=== PATIENT | female | born 1990 | race Caucasian/White ===

== ENCOUNTER 2018-01-29 12:42 | Emergency (ER) | payer MEDICAID ==
--- NOTE | 2018-01-29 14:47 | US ---
Indication: 28 weeks IUP with bleeding Comparison: None available Technique: Real-time ultrasound was performed through the pelvis. Findings: There is a single living fetus in cephalicpresentation. Amniotic fluid volume is within normal limits. Anterior placenta. The placenta is not previa. There are no adnexal masses or cysts evident. Cervix length measures approximately Measurements and calculations: Fetus has a composite sonographic age of 20 weeks 1 day. This calculation is based on the biparietal diameter, head circumference, abdominal circumference, and femur length. Estimated heart rate 142.5 beats per min. Estimated weight 1134 g. Impression: Single living fetus with a composite sonographic age of 20 weeks 1 day. Estimated heart rate 142.5 beats per min. The study was performed for the emergent evaluation of bleeding, and the whole anatomic survey of the fetus was not performed. This should be performed on an outpatient elective basis as clinically warranted.
[2018-01-29 14:56] LABS: BASO # 0.1 K/uL (0.0-0.2); BASO % 0.7 % (0.0-2.0); EOS # 0.2 K/uL (0.0-0.7); EOS % 1.6 % (0.0-4.0); HEMOGLOBIN 10.7 g/dL (11.0-16.0); LYMPH # 1.5 K/uL (1.0-4.3); LYMPH % 14.4 % (20.0-40.0); MEAN CELL VOLUME 84.9 fL (81.0-99.0); MEAN CORPUSCULAR HEMOGLOBIN 29.6 pg (27.0-31.0); MEAN CORPUSCULAR HGB CONC 34.8 g/dL (33.0-37.0); MEAN PLATELET VOLUME 6.8 fL (7.2-11.7); MONO # 0.9 K/uL (0.0-0.8); MONO % 8.1 % (0.0-10.0); NEUT % 75.2 % (50.0-75.0); RBC 3.6 Mil/uL (3.80-5.20); RED CELL DISTRIBUTION WIDTH 12.5 % (11.5-14.5); WHITE BLOOD COUNT 10.6 K/uL (4.8-10.8)
[2018-01-29 15:03] LABS: SQUAMOUS EPITHIAL 10 /hpf (0-5); URINE BACTERIA OCC (<OCC); URINE BILIRUBIN NEGATIVE (NEGATIVE); URINE BLOOD 3+ (NEGATIVE); URINE CLARITY Hazy (Clear); URINE COLOR Yellow (YELLOW); URINE GLUCOSE (UA) NORMAL (Normal); URINE LEUKOCYTE ESTERASE 1+ Leu/uL (Negative); URINE PROTEIN 1+ mg/dL (NEGATIVE)
[2018-01-29] MEDS ORDERED: cefTRIAXone 2 GM in Sodium Chloride 0.9% 100 ML IVPB ONE (15:25)
--- NOTE | 2018-01-29 16:17 | OBHP ---
Datetime: 01/29/2018 16:00 IP Adm Impression: , intrauterine ; No Active Labor IP Chief Complaint Other: Vaginal Bleeding IP Admit Plan: Observation/Evaluation Admit Comment, IP Provider: 27 yo female with an IUP at 28.4 weeks Presented with c/o of vaginal bleeding last PM and today on/off. Also c/o of thick vaginal D/C and Increased frequency of urination with urgency. Admits to drinking little to no water Denies any pelvic pain, or contractions. Admits to adequate FM Pt furthe states that she had a Placenta Previa with her first but delivered Vaginally PMXx and PSHx negative Social Hx Negative x 3 Allergies Bactrim A/P SSE no blood in vagina but thick, copious amount of vaginal discharge, non-malodorous Suspected GC/Ch and test in urine ordered Vaginal culture also done for Trich and B Received IV Hydration and Rocephin 2 grams IVPB Probable Dehydration and UTI Pelvic US ordered and no Placenta Previa Urine with large Hematuria. No CVA tenderness No contractions and Tracing reassuring for GA D/C Home with instructions to increase po water intake Rx's for Macrobid and Diflucan Will follow up at her Clinic in 7-10 days or sooner if needed Pelvic Type - PN: Adequate Extremities - PN: Normal Abdomen - PN: Normal Back - PN: Normal Breast - PN: Not Done Lungs - PN: Normal Heart - PN: Normal Thyroid - PN: Normal Neurologic - PN: Normal HEENT - PN: Normal General - PN: Normal Presentation-Admit: Vertex FHR - Baseline A Provider: 150 Membranes, Provider: Intact Contraction Comments Provider: None Gestation - Est Wks by US: 28.4 EGA AdmitDate IP: 28.4 Vital Signs Provider: Reviewed; Within Normal Limits IP Chief Complaint: Signs/symptoms UTI; Maternal discomfort; evaluation; Other NICHD Variability Prov Fetus A: Moderate 6-25bpm NICHD Accel Fetus A IP Provider: 10X10 NICHD Decel Fetus A IP Provider: None Dilatation, Provider: 0 Effacement, Provider: 0 Station, Provider: High Genitourinary Exam: Normal DTRs - PN: Normal
--- NOTE | 2018-01-29 16:19 | OBDCSUM ---
Datetime: 01/29/2018 15:41 Discharged to, Provider: Home Follow up at, Provider: clinic Disch Instr Activity: Normal activity Disch Instr Diet: Regular Discharge Instructions, Provider: Routine instructions given Discharge Diagnosis, Provider: Antepartum Bleeding Discharge Time: 01/29/2018 15:42 Follow up in weeks, Provider: 7-10 days Disch Referrals: None Contraception discussed, Prov: No Disch Activity Restrictions: No exercising; No lifting; No sexual activity; Nothing in vagina - Inte rcourse, tampons, douche Discharge Comment, Provider: 27 yo female with an IUP at 28.4 weeks Presented with c/o of vaginal bleeding last PM and today on/off. Also c/o of thick vaginal D/C and Increased frequency of urination with urgency. Admits to drinking little to no water Denies any pelvic pain, or contractions. Admits to adequate FM Pt furthe states that she had a Placenta Previa with her first but delivered Vaginally PMXx and PSHx negative Social Hx Negative x 3 Allergies Bactrim A/P SSE no blood in vagina but thick, copious amount of vaginal discharge, non-malodorous Suspected GC/Ch and test in urine ordered Vaginal culture also done for Trich and B Received IV Hydration and Rocephin 2 grams IVPB Probable Dehydration and UTI Pelvic US ordered and no Placenta Previa Urine with large Hematuria. No CVA tenderness No contractions and Tracing reassuring for GA D/C Home with instructions to increase po water intake Rx's for Macrobid and Diflucan Will follow up at her Clinic in 7-10 days or sooner if needed Discharge Diagnosis Prov Other: UTI with Hematuria
[2018-01-29 19:47] VITALS: BP 108/54; PULSE 81
== END 2018-01-29 15:46 | disposition home or self-care (01) ==
LOC: C.EROB 12:42
DX: O23.43 Unspecified infection of urinary tract in pregnancy, third trimester (principal); Z3A.28 28 weeks gestation of pregnancy
CPT/HCPCS: 76815; 81001; 85025; 86850; 86900; 87070; 87480; 87491; 87510; 87591; 87660; 96374; 99283; J0696

== ENCOUNTER 2018-02-28 13:18 | Emergency (ER) | payer BC, MEDICAID ==
[2018-02-28 14:54] LABS: SQUAMOUS EPITHIAL 34 /hpf (0-5); URINE BACTERIA FEW (<OCC); URINE BILIRUBIN NEGATIVE (NEGATIVE); URINE BLOOD 3+ (NEGATIVE); URINE CLARITY Hazy (Clear); URINE COLOR Yellow (YELLOW); URINE GLUCOSE (UA) NORMAL (Normal); URINE LEUKOCYTE ESTERASE 3+ Leu/uL (Negative); URINE PROTEIN 1+ mg/dL (NEGATIVE); URINE UROBILINOGEN NORMAL mg/dL (0.2-1.0); WBC CLUMPS MOD /hpf
[2018-02-28] MEDS ORDERED: cefTRIAXone 1 gm in Water For Injection 2.1 ML IM ONE (16:00)
--- NOTE | 2018-02-28 17:13 | OBHP ---
Datetime: 02/28/2018 15:42 IP Adm Impression: , intrauterine ; No Active Labor IP Admit Plan: Observation/Evaluation Admit Comment, IP Provider: cc: "Vaginal discharge and bleeding last night and this morning" Patient is a 27 y/o who is currently 32 weeks and 6 days gestational age who presented tod ay for vaginal discharge and bleeding. She had associated symptoms of diarrhea (x4 episodes) and mild -mod low back and abdominal pain. She described her vaginal discharge as "dark brown with a tinge of pink". She said that she had vaginal discharge last night at 8pm and this morning at 8 am as well. De nies dysuria, frequency, urgency, dizziness, cp, sob, n/v. Her LMP is 07/14/17. Based on patient's LMP , her UDAY is on 04/19/18. Patient endorses movement. Denies contractions. No leakage of fluid. Denies sexual activity. She takes vitamins and iron supplements. She does not drink enough w ater. OBHx: . Previous term delivery (38 weeks gestational age) was to baby boy 5 lb 3 oz. P revious miscarriage. GynHx: menarche at 11 y/o. Periods occur every 28-30 days and last 2-3 days in duration. Previousl y was positive for Chlamydia (2010). Denies other STI. Denies fibroids and cysts. Last pap smear was in August and normal. PMHx: Asthma PSHx: none Meds: vitamins, iron supplement Allergies: Allergra, Bactrim SocialHx: denies EtOH, smoking, and recreational drug use. Works at a dialysis center. Monogamous to . Not sexually active at this time. FamHx: mom (60 y/o) with HTN. Dad (60 y/o) with HTN and HLD. Assessment: Patient is a 27 y/o who is currently 32 weeks and 6 days gestational age + Greenish vaginal discharge, bloody tinged No active vaginal bleeding noted Muscular related back pain Plan: 1. Urinalysis: showed +blood, +Leukocyte esterase, + wbc, + bacteria 2. Culture of Green vaginal discharge sent 3. Urine culture ordered 4. Ceftriaxone 2g x1 IM injection 5. Diflucan 150 mg PO tablet given 6. Motrin 600 mg PO tablet 7. NST done and Reactive. No Uterine contractions 7. Encourage increased PO intake. Andrea Stephenson, PGY1 DEJA H_P note for Dr. Woody Pelvic Type - PN: Adequate Extremities - PN: Normal Abdomen - PN: Normal Back - PN: Normal Breast - PN: Not Done Lungs - PN: Normal Heart - PN: Normal Thyroid - PN: Not Done Neurologic - PN: Normal HEENT - PN: Normal General - PN: Normal FHR - Baseline A Provider: 140 Membranes, Provider: Intact Contraction Comments Provider: None Comments, ACOG Physical Exam: Gen: NAD. AAOx3. Resting comfortably in bed. Heart: RRR, normal s1/s2. Lungs: CTA bilaterally. No w/r/r Back: Low back pain likely 2/2 . Abdomen: Gravid abdomen. Fundal height is appropriate for gestational age. +BS. NT/ND. : speculum exam showed green tinged discharge. Lower Extremity: no pitting edema. No swelling of the legs. No calf tenderness. Negative Glen sig n. Gestation - Est Wks by US: 32.6 EGA AdmitDate IP: 32.6 Vital Signs Provider: Reviewed; Within Normal Limits IP Chief Complaint: Vaginal bleeding; Signs/symptoms UTI NICHD Variability Prov Fetus A: Moderate 6-25bpm NICHD Accel Fetus A IP Provider: 10X10 FHR Category Provider Fetus A: Category I NICHD Decel Fetus A IP Provider: None Dilatation, Provider: 0 Effacement, Provider: 0 Station, Provider: floating Genitourinary Exam: Abnormal DTRs - PN: Normal
--- NOTE | 2018-02-28 17:36 | OBDCSUM ---
Datetime: 02/28/2018 16:00 Discharged to, Provider: Home Follow up at, Provider: clinic Disch Instr Activity: Normal activity Disch Instr Diet: Regular Discharge Instructions, Provider: Routine instructions given Discharge Diagnosis, Provider: Antepartum Bleeding Discharge Time: 02/28/2018 16:00 Follow up in weeks, Provider: schedule appointment or prn Disch Referrals: None Contraception discussed, Prov: Yes Disch Activity Restrictions: No exercising; No lifting; Minimize stair-climbing; No sexual activity; Nothing in vagina - Hermann, tampons, douche Discharge Comment, Provider: Patient is a 27 y/o who is currently 32 weeks and 6 days gestat ional age who presented today for vaginal discharge and bleeding. She had associated symptoms of diar etienne (x4 episodes) and mild-mod low back and abdominal pain. She described her vaginal discharge as " dark brown with a tinge of pink". She said that she had vaginal discharge last night at 8pm and this morning at 8 am as well. Denies dysuria, frequency, urgency, dizziness, cp, sob, n/v. Her LMP is 07/14. Based on patient's LMP, her UDAY is on 04/19/18. Patient endorses movement. Denies contract ions. No leakage of fluid. Denies sexual activity. She takes vitamins and iron supplements. She does not drink enough water. Pt seen one month ago with the same complaints. OBHx: . Previous term delivery (38 weeks gestational age) was to baby boy 5 lb 3 oz. P revious miscarriage. GynHx: menarche at 11 y/o. Periods occur every 28-30 days and last 2-3 days in duration. Previousl y was positive for Chlamydia (2010). Denies other STI. Denies fibroids and cysts. Last pap smear was in August and normal. PMHx: Asthma PSHx: none Meds: vitamins, iron supplement Allergies: Allergra, Bactrim SocialHx: denies EtOH, smoking, and recreational drug use. Works at a dialysis center. Monogamous to . Not sexually active at this time. FamHx: mom (60 y/o) with HTN. Dad (60 y/o) with HTN and HLD. Assessment: Patient is a 27 y/o who is currently 32 weeks and 6 days gestational age + Greenish vaginal discharge, bloody tinged No active vaginal bleeding noted Muscular related back pain Drinks little to no water Plan: 1. Urinalysis: showed +blood, +Leukocyte esterase, + wbc, + bacteria 2. Culture of Green vaginal discharge sent 3. Urine culture ordered 4. Ceftriaxone 2g x1 IM injection 5. Diflucan 150 mg PO tablet given 6. Motrin 600 mg PO tablet 7. NST done and Reactive. No Uterine contractions 7. Encourage to increase PO water intake. Patient discharged home in Stable and Satisfactory condition and with Rx for Motrin 600 mg q6 PO x3 days, Keflex 500 mg TID PO x10 days, and Fluconazole 100 mg tablet after completion of keflex. Patient should follow up with her regularly scheduled OB appointment or as needed. Discharge Diagnosis Prov Other: UTI/Bladder Infection Muscular back pain Contraception after Delivery: Undecided
[2018-02-28 20:22] VITALS: BP 106/61; PULSE 66
== END 2018-02-28 16:04 | disposition home or self-care (01) ==
LOC: C.EROB 13:18
DX: O23.43 Unspecified infection of urinary tract in pregnancy, third trimester (principal); O23.13 Infections of bladder in pregnancy, third trimester; O26.893 Other specified pregnancy related conditions, third trimester; M54.5 Low back pain; Z3A.32 32 weeks gestation of pregnancy
CPT/HCPCS: 81001; 96372; 99283; J0696